=== PATIENT | female | born 1980 | race Caucasian/White ===

== ENCOUNTER 2023-07-31 08:41 | Outpatient (CLI) | payer OTHER, SELFPAY ==
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
== END 2023-07-31 08:42 | disposition home or self-care (01) ==
LOC: CT 08:42
PROVIDERS: PCP Nurse Practitioner Family; Visit Provider Nurse Practitioner Family
DX: M54.2 Cervicalgia (principal)
CPT/HCPCS: 72125

== ENCOUNTER 2024-05-22 11:00 | Outpatient (RCR) | payer OTHER, SELFPAY ==
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
== END 2024-09-19 23:59 | disposition home or self-care (01) ==
PROVIDERS: PCP Nurse Practitioner Family; Visit Provider Nurse Practitioner Family
DX: M54.2 Cervicalgia (principal); M54.6 Pain in thoracic spine; M79.622 Pain in left upper arm; V89.2XXA Person injured in unspecified motor-vehicle accident, traffic, initial encounter; Y99.0 Civilian activity done for income or pay
CPT/HCPCS: 97032; 97035; 97110; 97140; 97161